=== PATIENT | male | born 1985 | race Caucasian/White ===

== ENCOUNTER 2019-11-25 21:46 | Emergency (ER) | payer MEDICAID, SELFPAY ==
[2019-11-25 22:07] VITALS: BP 128/91; PULSE 115; RESP 15; TEMP 36.6; O2SAT 97; BMI 21.5
--- NOTE | 2019-11-25 22:49 | HMH.EDMCLR ---
ED Disposition Clinical Impression: Medical clearance for incarceration Disposition: Home, Self-Care Condition on Discharge: Good Instructions: DI for Drug or Alcohol Withdrawal Additional Instructions: see pcp for follow up Referrals: Provider,Referral, [Primary Care Provider] - - Critical Care Critical Care Time: No Attestation: On 11/25/19, the high probability of a clinically significant, sudden or life threatening deterioration of the following system(s) required my full and direct attention, intervention and personal management. The time I documented below is in addition to time spent performing reported procedures but includes the following listed in this critical care notation. Medical Decision Making - Medical Records Medical records reviewed: Yes: I reviewed the patient's medical records. - Cordell Inquiry Pt receiving controlled substance: No Vital Signs: 11/25/19 22:07 Temperature 97.9 F Temperature Source Oral Pulse Rate [Left Brachial] 115 H Respiratory Rate 15 Blood Pressure [Left Arm] 128/91 H Blood Pressure Mean [Left Arm] 103 Blood Pressure Source [Left Arm] Automatic Cuff Blood Pressure Position [Left Arm] Sitting 02 Sat by Pulse Oximetry 97 Oxygen Delivery Method Room Air - Lab Data Lab results reviewed: Yes: I reviewed the patient's lab results. Medical Clearance HPI - General Chief complaint: Medical Clearance Stated complaint: Medical Clearance Time Seen by Provider: 11/25/19 22:20 Mode of Arrival: Ambulatory Source of Information: Patient, Medical Record Limitations: No Limitations Description of Symptoms (Recalled from ER Triage Doc. by RN): patient brought in by Celeste REED for medical clearance. Patient reports he last used opiates about 8 hours go by IV. - History of Present Illness HPI Narrative: pt with no specific c/o MD complaint: medical clearance requested Reason for Medical Clearance: medical condition Place: home Alleged Intoxication: Yes Traumatic Symptoms: denies traumatic injury Associated Symptoms: denies other symptoms Treatments Prior to Arrival: none Allergies/Adverse reactions: Allergies Allergy/AdvReac Type Severity Reaction Status Date / Time No Known Allergies Allergy Unverified 05/23/17 15:24 [facility] History - Hepatitis A Screen Drug use history?: No High risk sexual behaviors?: No History of sexually transmitted infection?: No Currently employed?: No Childcare worker?: No Do you have indoor plumbing?: Yes Do you have electricity?: Yes Attestation statement:: This patient has been screened for Hepatitis A risk factors. I have reviewed the patient's past medical history: Yes - Social History Smoking Status: Current every day smoker # Packs/Day (cigarettes): 1 Alcohol Intake: never Substance Use Type: opiates, IV drugs Occupational Status: unemployed ROS Obtained: Yes All systems reviewed & no additional complaints - Constitutional Constitutional: Denies fever(s) - Eyes Eyes: Denies change in vision - ENT Ears, Nose, Mouth, and Throat: Denies sore throat - Cardiovascular Cardiovascular: Denies chest pain - Respiratory Respiratory: No cough - Gastrointestinal Gastrointestingal: Denies: abdominal pain - Genitourinary Male Genitourinary: Denies hematuria - Musculoskeletal Musculoskeletal: Denies joint pain - Integumentary/Breasts Skin/Breast: Denies rash - Neurologic Neurologic: Denies confusion, Denies seizure-like activity Physical Exam - General General appearance: alert - Head Head exam: normocephalic - Eye Eye exam: Present: PERRL, EOMI - ENT ENT exam: Present: mucous membranes moist - Neck Neck exam: Present: trachea midline - Respiratory Respiratory exam: Absent: respiratory distress - Cardiovascular Cardiovascular exam: Present: regular rate - Abdominal Exam Abdominal exam: Present: soft - Extremities Exam Extremities exam: Present: full ROM - Neurolog
[2019-11-25 22:56] VITALS: BP 142/70; PULSE 89; RESP 19; TEMP 36.7; O2SAT 98
== END 2019-11-25 22:58 | disposition home or self-care (01) ==
PROVIDERS: Emergency Provider Emergency Medicine
DX: F11.129 Opioid abuse with intoxication, unspecified (principal); F17.210 Nicotine dependence, cigarettes, uncomplicated
CPT/HCPCS: 99282; 99283

== ENCOUNTER 2021-11-27 17:59 | Emergency (ER) | payer MEDICAID, SELFPAY ==
[2021-11-27 18:00] VITALS: BP 167/108; PULSE 107; RESP 17; TEMP 36.9; O2SAT 99
--- NOTE | 2021-11-27 18:16 | HMH.EDGENADL ---
ED Disposition Clinical Impression: Finger infection Disposition: Xfer Critical Access Hosp Condition on Discharge: Fair - Critical Care Critical Care Time: No Attestation: On , the high probability of a clinically significant, sudden or life threatening deterioration of the following system(s) required my full and direct attention, intervention and personal management. The time I documented below is in addition to time spent performing reported procedures but includes the following listed in this critical care notation. Medical Decision Making - Medical Records Medical records reviewed: Yes: I reviewed the patient's medical records. - Cordell Inquiry Pt receiving controlled substance: No Vital Signs: 11/27/21 18:00 Temperature 98.5 F Temperature Source Oral Pulse Rate [Left Radial] 107 H Respiratory Rate 17 Blood Pressure [Right Arm] 167/108 H Blood Pressure Mean [Right Arm] 127 02 Sat by Pulse Oximetry 99 Oxygen Delivery Method Room Air - Lab Data Lab results reviewed: Yes: I reviewed the patient's lab results. Lab Results 11/27/21 18:25: WBC 13.7 H, RBC 4.49 L, Hgb 13.8 L, Hct 42.6, MCV 95.1 H, MCH 30.7, MCHC 32.3, RDW 13.8, Plt Count 413, MPV 8.0, Neut % (Auto) 76.8, Lymph % (Auto) 12.8, [place] % (Auto) 5.7, Eos % (Auto) 3.6, Baso % (Auto) 1.1, Neut # (Auto) 10.6 H, Lymph # (Auto) 1.8, [place] # (Auto) 0.8, Eos # (Auto) 0.5 H, Baso # (Auto) 0.2 11/27/21 18:25: Sodium 137, Potassium 3.6, Chloride 102, Carbon Dioxide 29, Anion Gap 9.6, BUN 13, Creatinine 0.60 L, Estimated Creat Clear 151, Estimated GFR 152, Est GFR ( Amer) 183, Glucose 102 H, Calcium 8.9, Total Bilirubin < 0.1 L, AST 31, ALT 43, Alkaline Phosphatase 95, C-Reactive Protein 123.8 H, Total Protein 6.9, Albumin 3.6, Globulin 3.3 H, Albumin/Globulin Ratio 1.1 11/27/21 18:25: ESR 42 H 11/27/21 18:25: Lactate 1.2 Result diagrams: 11/27/21 18:25 11/27/21 18:25 Orders (Tests/Meds): ED MEDICATIONS Generic Name Dose Route Start Last Admin Trade Name Ashlie PRN Reason Stop Dose Admin Piperacillin Sod/Tazobactam 100 mls @ 200 mls/hr 11/27/21 18:45 11/27/21 18:51 Sod 4.5 gm/ Sodium Chloride IV 12/11/21 18:44 200 mls/hr Q6H NOEMI Administration Sodium Chloride 1,000 mls @ 999 mls/hr 11/27/21 19:00 11/27/21 18:50 Sod Chlor 0.9% 1000ml Bag IV 11/27/21 20:00 999 mls/hr .Q1H1M NOEMI Administration Morphine Sulfate 4 mg 11/27/21 18:37 11/27/21 18:53 Morphine 8mg/Ml Syringe IV 12/27/21 18:36 4 mg Q3HP PRN Administration Moderate Pain Sodium Chloride 10 ml 11/27/21 18:34 Sodium Chloride 0.9% 10ml Flush Syringe IV 12/27/21 18:33 NEEDED PRN Maintain IV Site Sodium Chloride 10 ml 11/27/21 18:47 Sodium Chloride 0.9% 10ml Vial IV 12/27/21 18:46 NEEDED PRN to Dilute Lorazepam inj Vancomycin HCl 1,000 mg 11/27/21 18:37 Vancomycin 1000mg Vial IV 11/27/21 18:38 ONCE ONE Discontinued Medications Generic Name Dose Route Start Last Admin Trade Name Ashlie PRN Reason Stop Dose Admin Acetaminophen 1,000 mg 11/27/21 18:37 11/27/21 19:12 Acetaminophen 500mg Tab PO 11/27/21 18:38 1,000 mg ONCE ONE Administration Ketorolac Tromethamine 15 mg 11/27/21 18:37 11/27/21 18:50 Ketorolac 30mg/Ml Vial IV 11/27/21 18:38 15 mg ONCE ONE Administration Lorazepam 0.5 mg 11/27/21 18:47 11/27/21 18:50 Lorazepam 2mg/Ml Vial IV 11/27/21 18:48 0.5 mg ONCE ONE Administration Sodium Chloride 1,000 ml 11/27/21 18:39 11/27/21 18:46 Sodium Chloride 0.9% 500ml Bag IV 11/27/21 18:40 Not Given ONCE ONE ORDERS Category Date Time Status Blood Culture Stat Micro 11/27/21 18:25 Ordered Medical Decision Narrative: Patient is a 36-year-old male presenting with a chief complaint of left fourth digit pain and swelling. Differential diagnosis includes, but is not limited to, flexor tenosynovitis, osteomyelitis, abscess, necrotizing hand infection.
--- NOTE | 2021-11-27 18:36 | XR_ITS ---
PROCEDURE INFORMATION: Exam: XR Left Hand Exam date and time: 11/27/2021 6:54 PM Age: 36 years old Clinical indication: Pain; Finger(s); Left; Additional info: Pain, poss spider bite infected. Swelling and redness TECHNIQUE: Imaging protocol: Radiologic exam of the Left hand. Views: 1 or 2 views. COMPARISON: No relevant prior studies available. FINDINGS: Bones/joints: No evidence of acute displaced cortical disruption or dislocation. Regional bone density and trabecular pattern have a satisfactory appearance. Soft tissues: Severe soft tissue swelling adjacent to the 4th digit. IMPRESSION: 1. Severe soft tissue swelling adjacent to the 4th digit. 2. Underlying osseous abnormality is not detected.
--- NOTE | 2021-11-27 18:40 | PC.NURSE ---
placed call to [facility] for hand surgery
[2021-11-27 18:48] LABS: Basophils # 0.2 K/mm3 (0-0.2); Basophils % 1.1 % (0.1-2.0); Eosinophils # 0.5 K/mm3 (0.0-0.4); Eosinophils % 3.6 % (0.1-12.0); Hematocrit 42.6 % (42.0-52.0); Hemoglobin 13.8 g/dL (14.1-18.0); Lymphocytes # 1.8 K/mm3 (0.7-4.5); Lymphocytes % 12.8 % (10-50); Mean Corpuscular HGB Conc 32.3 g/dL (31.8-35.4); Mean Corpuscular Hemoglobin 30.7 pg (27.0-31.2); Mean Corpuscular Volume 95.1 fl (80-94); Monocytes # 0.8 K/mm3 (0.1-1.0); Monocytes % 5.7 % (1.7-9.3); Neutrophils # 10.6 K/mm3 (1.8-7.8); Neutrophils % 76.8 % (37.0-80.0); Platelet Count 413 K/mm3 (142-424); Red Blood Count 4.49 M/mm3 (4.60-6.20); Red Cell Distribution Width 13.8 % (11.5-17.5); White Blood Count 13.7 K/mm3 (4.8-10.8)
[2021-11-27 18:51] LABS: Alanine Aminotransferase 43 U/L (12-78); Albumin Level 3.6 g/dl (3.5-5.0); Albumin/Globulin Ratio 1.1 (1.1-1.8); Alkaline Phosphatase 95 U/L (38-126); Anion Gap 9.6 mEq/L (5-15); Aspartate Amino Transferase 31 U/L (17-59); Bilirubin,Total < 0.1 mg/dl (0.2-1.3); Blood Urea Nitrogen 13 mg/dl (9-20); Calcium 8.9 mg/dl (8.4-10.2); Carbon Dioxide 29 mmol/L (22.0-30.0); Chloride 102 mmol/L (98-107); Creatinine Clearance Estimated 151 mL/min (50-200); Estimated Glomerular Filt Rate 152 ml/min (>60); GFR (African American) 183 ML/MIN (>60); Globulin 3.3 g/dL (1.3-3.2); Glucose 102 mg/dl (74-100); Potassium 3.6 mmoL/L (3.5-5.1); Sodium 137 mmol/L (136-145); Total Protein,Serum 6.9 g/dl (6.3-8.2)
[2021-11-27 18:56] LABS: C-Reactive Protein 123.8 mg/L (0-4); Lactic Acid 1.2 mmol/L (0.7-2.1)
[2021-11-27 19:16] LABS: Erythrocyte Sedimentation Rate 42 mm/hr (0-15)
--- NOTE | 2021-11-27 20:35 | PC.NURSE ---
[facility] accepted, Dr. Flower
[2021-11-27 20:52] VITALS: BP 146/62; PULSE 95; RESP 19; TEMP 36.9; O2SAT 97
--- NOTE | 2021-11-27 20:52 | PC.NURSE ---
requested patient transfer to [facility] via [facility], however, patient refused and stated he would only go pov. IV line dc'd. Sister was agreeable to driving him to [facility].
== END 2021-11-27 20:55 | disposition short-term general hospital (02) ==
PROVIDERS: Emergency Medicine; Emergency Provider Emergency Medicine
DX: F11.10 Opioid abuse, uncomplicated; B96.89 Other specified bacterial agents as the cause of diseases classified elsewhere; Z16.39 Resistance to other specified antimicrobial drug; L08.89 Other specified local infections of the skin and subcutaneous tissue
CPT/HCPCS: 73120; 80053; 83605; 85025; 85651; 86140; 87040; 87077; 87186; 96365; 96375; 99284; J2543

== ENCOUNTER 2024-08-01 04:09 | Emergency (ER) | payer OTHER, SELFPAY ==
--- NOTE | 2024-08-01 04:41 | ED_ITS ---
Discharge Plan Disposition Patient Disposition: Prescriptions Prescriptions: No Action No Known Home Medications Referrals Follow up/Referrals: Provider,Referral, [Primary Care Provider] - See instructions Clinical Impressions Clinical Impression: Asystole, Overdose Print Language Print Language: Dominican Discharge ED Provider: Rui Cox General Adult HPI General Stated complaint: Unresponsive Time Seen by Provider: 08/01/24 04:09 History of Present Illness HPI narrative: 39-year-old male who family reports had a history of addiction presented to the ER as a code. EMS was called at 0336 by a bystander who found the patient down. Per EMS, bystander reported that they found the patient down approximately 10 minutes before they were called to scene. When EMS arrived on scene, they found the patient pulseless and not breathing. They also found a syringe on scene within arms length of the patient according to EMS. They initiated CPR, placed Air-Q, and began ACLS with the Auto-Pulse. EMS reports that in route patient received 2 mg of Narcan through IO, he also received 3 doses of code dose epinephrine. Reportedly patient had received nasal Narcan from the bystander prior to EMS arrival. It is unclear if bystander had started CPR or the quality of the CPR that may have been started by them. EMS reports the initial rhythm was asystole. They did not have any rhythm changes reported in route. Patient's family including his sister and 2 nieces presented to the ER. I discussed with family after the code and they report that the patient had been staying with a cousin. They report he was a long standing drug addict and had had multiple overdoses in the past. They report he used anything he could get his hands on but specifically heroin. Related Data Home Medications ?Medication ?Instructions ?Recorded ?Confirmed No Known Home Medications 08/01/24 08/01/24 Allergies Allergy/AdvReac Type Severity Reaction Status Date / Time No Known Allergies Allergy Unverified 05/23/17 15:24 [facility] Disclaimer: The information contained in this section may have been updated after the patient was seen, as this information can be updated by other users. Social History Smoking Status: Current every day smoker alcohol intake: never substance use type: opiates and IV drugs current occupational status: unemployed Travel in the last 8 weeks: None Other Medical History Have you received the Flu Vaccine for this season: No Have you received the Pneumonia Vaccine: No ROS Obtained: Yes unobtainable due to endotracheal tube Physical Exam General General appearance: obtunded Comment: Cool, cyanotic, unresponsive Head Head exam: atraumatic and normocephalic Eye Eye exam: Present other (Pupils fixed at 7 mm, nonreactive) ENT ENT exam: Present other (Poor dentition in the oropharynx, Air-Q device in place, blood in the oropharynx) Neck Neck exam: Present trachea midline Chest Chest inspection: Present symmetric chest wall rise and other (No external evidence of trauma) Respiratory Respiratory exam: Present other (Bilateral breath sounds present with bagging, no spontaneous respiratory effort) Cardiovascular Cardiovascular exam: Present other (Pulse only palpable with auto pulse active, no cardiac activity) Abdominal Exam Abdominal exam: Present soft; Absent distention Comment: No external evidence of trauma exam: Present normal inspection Extremities Exam Extremities exam: Present cyanosis and other (Cool to the touch); Absent edema or joint swelling (No external evidence of trauma) Neurological Exam Neurological exam: Present other (Obtunded, GCS 3 T, no response to stimuli, no reflexes) Skin Skin exam: Present cyanosis and other (Cool, dry, cyanotic on arrival) Medical Decision Making Medical Records Medical records reviewed: Yes I reviewed the patient's medical records. Screening: Per USPSTF and CDC recommendations, given the prevalence of disease in our region, it is our hospital?s policy to screen for HIV and viral Hepatitis for all patients aged 18 and over and those with ongoing risk factors. MR Comment: The last encounter within our ER was in November 2021 when patient was evaluated for pain and swelling of his left fourth digit. Concern for flexor tenosynovitis, transferred to . Cordell Inquiry Pt receiving controlled substance: No Orders (Tests/Meds): ED MEDICATIONS Discontinued Medications Generic Name Dose Route Start Last Admin Trade Name Freq PRN Reason Stop Dose Admin Calcium Chloride 1 gm 08/01/24 05:30 08/01/24 05:38 Calcium Chloride 1gm/10ml Syringe (Crash Cart) IVP 08/01/24 05:31 1 gm ONCE ONE Administration Epinephrine HCl 1 mg 08/01/24 05:24 08/01/24 05:33 Epinephrine 0.1 Mg/Ml 10ml Syringe (Crash Cart) IV 08/01/24 05:25 1 mg ONCE ONE Administration Epinephrine HCl 1 mg 08/01/24 05:27 08/01/24 05:34 Epinephrine 0.1 Mg/Ml 10ml Syringe (Crash Cart) IV 08/01/24 05:28 1 mg ONCE ONE Administration Epinephrine HCl 1 mg 08/01/24 05:28 08/01/24 05:34 Epinephrine 0.1 Mg/Ml 10ml Syringe (Crash Cart) IV 08/01/24 05:29 1 mg ONCE ONE Administration Epinephrine HCl 1 mg 08/01/24 05:28 08/01/24 05:35 Epinephrine 0.1 Mg/Ml 10ml Syringe (Crash Cart) IV 08/01/24 05:29 1 mg ONCE ONE Administration Epinephrine HCl 1 mg 08/01/24 05:29 08/01/24 05:34 Epinephrine 0.1 Mg/Ml 10ml Syringe (Crash Cart) IV 08/01/24 05:30 1 mg ONCE ONE Administration Epinephrine HCl 1 mg 08/01/24 05:30 08/01/24 05:37 Epinephrine 0.1 Mg/Ml 10ml Syringe (Crash Cart) IV 08/01/24 05:31 1 mg ONCE ONE Administration Epinephrine HCl 1 mg 08/01/24 05:30 08/01/24 05:36 Epinephrine 0.1 Mg/Ml 10ml Syringe (Crash Cart) IV 08/01/24 05:31 1 mg ONCE ONE Administration Naloxone HCl 1 mg 08/01/24 05:29 08/01/24 05:36 Naloxone 0.4mg/Ml Vial IV 08/01/24 05:30 1 mg ONCE ONE Administration Sodium Bicarbonate 50 meq 08/01/24 05:31 08/01/24 05:38 Sodium Bicarb 8.4% 50ml Syringe (Crash Cart) IV 08/01/24 05:32 50 meq ONCE ONE Administration Medical Decision Narrative: In summary, 39-year-old male with known history of addiction presented to the ER unresponsive, pulseless, as a CODE BLUE with EMS. I was present at bedside upon patient's arrival. Air-Q airway was in place and patient was bagging easily with bilateral breath sounds present, GCS 3 T, pupils fixed and dilated, no external findings of trauma. On arrival patient received additional dose of IV Narcan, we also continued with regular code dose epinephrine and continued ACLS. Additional IO access was obtained by nursing. IV fluids were continued. On my differential I had considered drug overdose, metabolic abnormality, patient had fingerstick blood glucose at 228 which did not require intervention, considered the possibility of significant electrolyte abnormality which is why the calcium had been administered to hopefully stabilize the cardiac membrane, I had considered trauma or intracranial bleed but did not have evidence of these or history consistent with this, also considered pneumothorax but patient had clear bilateral breath sounds with bagging. I considered ACS or PE but less likely given the circumstances surrounding the way the patient was found and his history. At the first pulse check patient did have PEA with a borderline organized rhythm, since he had blood coming from his Air-Q tube but the presence of a possibly organized rhythm, I made the choice to exchange the LMA device for an endotracheal tube. See procedure note for details. ACLS algorithm was continued, bicarb and calcium were administered as adjuncts, deviated from the ACLS algorithm to continue CPR through selected pulse checks for the purpose of circulating medication since patient had not had any change in rhythm or other clinical status. The subsequent pulse checks were performed demonstrating PEA or asystole, no shockable rhythm. I used bedside cardiac ultrasound during these pulse checks and did not appreciate any cardiac activity. See procedure note. According to EMS report, patient had been down since at least 325 and had been receiving ACLS from medical professional since 340. Unfortunately patient had no change in clinical status, he did not have any more evidence of an organized rhythm, he never had a pulse, no spontaneous respirations or effort, no neurologic reflexes, and he remained pale and obtunded. Patient was pronounced at 0425 after a total of 44 minutes of ACLS, and approximately 1 hour of known time down. Procedures Intubation Mallampati Score:: Class II Time out performed: No (emergent) sedative: none Laryngoscope: Riky (3) Assist Device Used: other (video larygoscopy) ET Tube Size: 7.5 ET Tube Uncuffed: Yes Tube Secured Depth (cm): 22 Tube Secured Location: teeth Tube Placement Confirmation: visualized tube passing through cords Patient Tolerated Procedure: no complications Additional Comments: bilateral breath sounds present and positive color change, no breath sounds over epigastrum Miscellaneous Procedure Procedure Performed: Limited Cardiac Ultrasound Indication: Code Identified cardiac views: Subxiphoid Findings: Cardiac activity absent, no obvious pericardial effusion Impression: -Absent cardiac activity Images were saved to permanent archive The study was technically adequate CPT: 78888 This study was performed by me, and I personally interpreted all images/videos. Based on my clinical judgement, these images were adequate and did not necessitate further imaging. Critical Care Critical Care Time Critical Care Time: Yes Attestation: On 08/01/24, the high probability of a clinically significant, sudden or life threatening deterioration of the following system(s) (cardiac, pulmonary, neuro) required my full and direct attention, intervention and personal management. The time I documented below is in addition to time spent performing reported procedures but includes the following listed in this critical care notation. Total Time Total Critical Care Time: 12
--- NOTE | 2024-08-01 04:52 | PC.NURSE ---
watch crystal grinder called @ [id number]
--- NOTE | 2024-08-01 04:52 | PC.NURSE ---
HEMANT called at 0440 by Jung. Case # [id number] Alma Cuadra
--- NOTE | 2024-08-01 04:58 | PC.NURSE ---
Code note 0336: EMS called to scene. Per report pt was found down approx 0350. Pupils fixed and dilated at scene. 0342: Per EMS CPR started PATIENT CARE TECHNICIAN INSTRUCTOR in ED pt given x3 Epi IO, Narcan 2mg IO and started on autopulse. LMA inserted at scene - see EMS run sheet 0409: Arrival to ED room 3 0411: #2 IO established 0411: Narcan 1mg IO / Epi x1 amp 0413: Pulse check - PEA 0414: IV est 18g LFA 0415: FSBS 228 0415: Epi 1 amp per IO 0415: Calcium chloride 1g/bicarb given IO 0416: Pt intubated per MD. Tube placement verified by lung sounds, colormetric color change. 7.5 22 @ teeth 0417: Epi x1 amp IO 0418: Pulse check - no pulse - asystole - no cardiac wall movement 0420: Epi 1 amp IO 0421: High dose epi (3 mg) IO 0421: Pulse check - PEA - no cardiac wall movement 0423: Pulse check Asystole, no cardiac wall movement 0425: No cardiac wall movement, No ROSC, time of 0425 0440: [facility] ([facility]) notified 0441: Hand Clipper notified
[2024-08-01 05:23] VITALS: BMI 22.4
[2024-08-01] MEDS: EPINEPHrine 0.1 MG/ML 10ML SYRINGE (CRASH CART) 1 MG IV ×7 (05:33→05:37)
[2024-08-01] MEDS: NALOXONE 0.4MG/ML VIAL 1 MG IV (05:36)
[2024-08-01] MEDS: SODIUM BICARB 8.4% 50ML SYRINGE (CRASH CART) 50 MEQ IV (05:38)
[2024-08-01] MEDS: CALCIUM CHLORIDE 1GM/10ML SYRINGE (CRASH CART) 1 GM IVP (05:38)
--- NOTE | 2024-08-01 06:20 | EXP.DEATH.NO ---
Pronouncement Note Date and Time of Date of : 08/01/24 Time of : 04:25 PCOD Preliminary cause of : Overdose of illicit drug Additional Data Confirmation of : no pulse, no respirations, no heart sounds and pupils fixed and dilated Family: at bedside Attending/PCP notified?: Yes Attending physician: Rui Cox MD Was code activated?: Yes Autopsy should be considered if:: Unknown or unanticipated medical complications Cause is not known with certainty on clinical grounds Would allay concerns of the public/family regarding Unexplained/unexpected apparently natural and not subject to a forensic medical jurisdiction DOA Within 24 hours of admission Sustained or apparently sustained injury while in the hospital Result of high risk, infectious and contagious disease Obstetric and pediatric arising from environmental or occupational hazard Unexplained/unexpected from dental, medical, or surgical diagnostic procedures and/or therapies Would disclose a known or suspected illness which also may have a bearing on survivors or recipients of transplanted organs Autopsy requested?: No Refused by family cellophane wrapping examiner notified?: Yes Organ bank notified?: Yes Advance directives: No
[2024-08-01 06:40] VITALS: BP 000/00; PULSE 0; RESP 0; TEMP -17.7; TEMP 0; O2SAT 0
--- NOTE | 2024-08-01 06:40 | PC.NURSE ---
coroners office taking patient to hold for the home.
== END 2024-08-01 06:40 | disposition expired ==
PROVIDERS: Emergency Provider Emergency Medicine
DX: T50.901A Poisoning by unspecified drugs, medicaments and biological substances, accidental (unintentional), initial encounter (principal); I46.9 Cardiac arrest, cause unspecified
CPT/HCPCS: 31500; 96374; 96375; 99291; J0171; J2310